=== PATIENT | male | born 1970 | race Caucasian/White ===

== ENCOUNTER 2024-01-21 08:53 | Emergency (ER) | payer OTHER ==
[2024-01-21 09:13] VITALS: BP 132/85; PULSE 69; RESP 17; TEMP 98.4; BMI 25.8
== END 2024-01-21 10:09 | disposition home or self-care (01) ==
LOC: JER 08:53
DX: S61.011A Laceration without foreign body of right thumb without damage to nail, initial encounter (principal); W26.8XXA Contact with other sharp object(s), not elsewhere classified, initial encounter
CPT/HCPCS: 99282-25

== ENCOUNTER 2024-06-27 04:26 | Day surgery (SDC) | payer OTHER ==
[2024-06-25 10:44] VITALS: BMI 24.7
[~2024-06-27 04:26] MED LIST: ACETAMINOPHEN 500 MG TABLET (FP) PO PRN
[2024-06-27] MEDS ORDERED: BUPIVACAINE HCL/PF 0.5% (5MG/ML) 10 ML VIAL ONE (07:44)
[2024-06-27] MEDS: BUPIVACAINE HCL/PF 0.5% (5MG/ML) 10 ML VIAL IJ ONE (17:18)
[2024-06-27 18:08] VITALS: BP 120/75; PULSE 80; RESP 20; TEMP 97.2
== END 2024-06-27 17:36 | disposition home or self-care (01) ==
LOC: JASU-SURG 04:26
PROVIDERS: ATTEND Pain Medicine Pain Medicine
PROC: 3E0T33Z Introduction of Anti-inflammatory into Peripheral Nerves and Plexi, Percutaneous Approach (ICD-10-PCS; 2024-06-27)
PROC: 3E0T3BZ Introduction of Anesthetic Agent into Peripheral Nerves and Plexi, Percutaneous Approach (ICD-10-PCS; principal; 2024-06-27 16:45)
DX: M47.812 Spondylosis without myelopathy or radiculopathy, cervical region (principal)
CPT/HCPCS: 76000-TC-FY